=== PATIENT | male | born 1955 | race Caucasian/White ===

== ENCOUNTER → 2017-01-27 | Outpatient (CLI) | payer OTHER | END | disposition home or self-care (01) | LOC: PUL 10:22 | PROVIDERS: ATTEND Physician Assistant Medical | DX: J44.9 Chronic obstructive pulmonary disease, unspecified (principal) | CPT/HCPCS: 94060; 94726; 94729 ==

== ENCOUNTER 2017-02-20 11:11 | Day surgery (SDC) | payer OTHER ==
[2017-02-17 18:43] VITALS: Ht 193 cm; Wt 88.0 kg
[~2017-02-20] VITALS: Ht 193 cm; Wt 88.0 kg
[2017-02-20] MEDS ORDERED: CEFAZOLIN 2 GM/50 ML (PMX) 50 ML IVPB ONE (15:30)
[2017-02-20] MEDS ORDERED: SOD CHLORIDE 0.9% 1,000 ML IV ONE (15:30)
== END 2017-02-20 12:10 | disposition home or self-care (01) ==
LOC: SDS 11:11
PROVIDERS: ATTEND Surgery
DX: K40.90 Unilateral inguinal hernia, without obstruction or gangrene, not specified as recurrent (principal); Z53.9 Procedure and treatment not carried out, unspecified reason

== ENCOUNTER 2017-02-27 09:57 | Inpatient (IN) | payer OTHER ==
[~2017-02-27] VITALS: Ht 193 cm; Wt 81.3 kg
[2017-02-27] VITALS (28 sets, daily range): BP systolic 82–154; BP diastolic 50–97; PULSE 74–228; RESP 11–20; Ht 193 cm; Wt 81.3 kg
[~2017-02-27 09:57] MED LIST: ROCURONIUM 50 MG INJ ONE
[2017-02-27] MEDS ORDERED: ATOR80TA75 PO (13:38)
[2017-02-27] MEDS ORDERED: FER325 PO (13:38)
[2017-02-27] MEDS ORDERED: FURO20TA3 PO (13:38)
[2017-02-27] MEDS ORDERED: ASPI81TA3 PO (13:39)
[2017-02-27] MEDS ORDERED: BENA10TA48 PO (13:39)
[2017-02-27] MEDS ORDERED: CARV6.2579 PO (13:39)
[2017-02-27 13:57] LABS: BASOPHILS % 0.3 % (0.0-2.0); EOSINOPHILS # 0.1 10^3/ul (0.0-0.5); EOSINOPHILS % 1.5 % (0.0-7.0); HEMOGLOBIN 14.2 g/dl (14.0-18.0); LYMPHOCYTES # 2.2 10^3/ul (0.8-2.9); LYMPHOCYTES % 29.5 % (15.0-51.0); MEAN CORPUSCULAR HEMOGLOBIN 30.2 pg (29.0-33.0); MEAN CORPUSCULAR VOLUME 91.5 fl (82.0-101.0); MEAN PLATELET VOLUME 10.1 fl (7.4-10.4); MONOCYTE # 0.6 10^3/ul (0.3-0.9); MONOCYTES % 8.2 % (0.0-11.0); NEUTROPHILS % 60.2 % (39.0-77.0); PLATELET COUNT 240 10^3/UL (140-415); RED CELL DISTRIBUTION WIDTH 15.3 % (11.5-14.5); WHITE BLOOD COUNT 7.4 10^3/ul (4.8-10.8)
[2017-02-27 14:04] LABS: INR 1.04; PROTIME 13.6 Sec (12.2-14.2); PT RATIO 1.1
[2017-02-27 14:05] LABS: ALBUMIN 4.2 g/dl (3.3-4.9); ALBUMIN/GLOBULIN RATIO 1.13; BILIRUBIN,INDIRECT 0.7 mg/dl (0-1.1); BILIRUBIN,TOTAL 0.7 mg/dl (0.2-1.3); PARTIAL THROMBOPLASTIN TIME 32.2 Sec (25.0-35.0); TOTAL PROTEIN 7.9 g/dl (6.1-8.1)
[2017-02-27 14:07] LABS: CALCIUM 9.9 mg/dl (8.4-10.2); CREATININE 0.72 mg/dl (0.61-1.24); POTASSIUM 4.6 mmol/L (3.5-5.1)
[2017-02-27] MEDS ORDERED: FENTAnyl 50 MCG/ML VIAL ONE (16:36)
[2017-02-27] MEDS ORDERED: MIDAZOLAM 1 MG/ML 2 ML INJ ONE (16:36)
--- NOTE | 2017-02-27 16:36 | HPN ---
Date/Time of Note Date/Time of Note DATE: 02/27/17 TIME: 16:35 Interval H&P Admission Note Pt. seen H&P reviewed: No system changes SAMINA SHORE MD Feb 27, 2017 16:36
[2017-02-27] MEDS ORDERED: POLYMYXIN/BACITRACIN 1L IRRIG ONE (16:42)
[2017-02-27] MEDS ORDERED: BUPIVACAINE 0.25% (MPF) 30 ML INJ ONE (17:13)
[2017-02-27] MEDS ORDERED: MEPERIDINE 25 MG INJ IV PRN (17:30)
[2017-02-27] MEDS ORDERED: FENTAnyl 50 MCG/ML VIAL IV PRN (17:30)
[2017-02-27] MEDS ORDERED: ONDANSETRON 4 MG INJ IV PRN ×3 (17:30→19:00)
[2017-02-27] MEDS ORDERED: hydrALAzine 20 MG INJ IV PRN (17:30)
[2017-02-27] MEDS ORDERED: DIPHENHYDRAMINE 50 MG INJ IV PRN (17:30)
[2017-02-27] MEDS ORDERED: METOCLOPRAMIDE 10 MG INJ IV PRN (17:30)
[2017-02-27] MEDS ORDERED: LABETALOL HCL 20MG INJ IV PRN (17:30)
[2017-02-27] MEDS ORDERED: morphine 10 MG INJ ONE (17:30)
[2017-02-27] MEDS ORDERED: morphine (1 MG/ML) 10ML SYRINGE IV PRN (17:30)
[2017-02-27] MEDS ORDERED: PHENYLephrine (100 MCG/ML) 5ML SYG ONE (17:56)
[2017-02-27] MEDS ORDERED: ONDANSETRON 4 MG INJ ONE (18:14)
[2017-02-27] MEDS ORDERED: PROPOFOL 20 ML ONE (18:20)
[2017-02-27] MEDS ORDERED: LIDOCAINE 2% (SDV) 5 ML INJ ONE (18:20)
[2017-02-27] MEDS ORDERED: NEOSTIGMINE 3 MG/3 ML SYRINGE ONE (18:21)
[2017-02-27] MEDS ORDERED: GLYCOPYRROLATE 0.4 MG INJ ONE (18:21)
--- NOTE | 2017-02-27 18:25 | OPR ---
Date/Time of Note Date/Time of Note DATE: 02/27/17 TIME: 18:16 Operative Report Procedure Date: Feb 27, 2017 Preoperative Diagnosis Left inguinal hernia without obstruction or gangrene Postoperative Diagnosis Left inguinal hernia without obstruction or gangrene Operation Performed 1. Left inguinal hernia repair with mesh 2. Implantation of biological extracellular matrix 3. Left ilioinguinal nerve block Surgeon: SAMINA SHORE MD Anesthesia Type: general Anesthesiologist: SHAISTA SOLIS MD Estimated Blood Loss: minimal Transfusion Required: no Specimens Hernia sac Grafts/Implants 1. Ethicon ultra pro plug and patch size large 2. 1000 mg amnio fix powder Complications: no Pt Condition Post Procedure: stable Disposition: PACU Indications The patient is a 61-year-old male with a history of hepatitis C and COPD who presented to the office complaining of a painful left groin bulge. He was diagnosed on clinical exam as having a large left inguinal hernia. The patient was scheduled for left inguinal hernia repair with mesh to prevent sequelae of hernia disease which include, but are not limited to: Incarceration and strangulation. All risks and benefits of the procedure including but not limited to: Wound infection, excessive bleeding, postoperative seroma/hematoma formation, nerve injury which may be temporary versus permanent, injury to the reproductive organs including the vas deferens and the testicle which may lead to testicular atrophy, injury to intra-abdominal organs necessitating subsequent operation, hernia recurrence, chronic pain, etc. were all explained to the patient full detail. The patient fully understood and wished to proceed with the procedure. Informed consent was therefore obtained. Operative\Procedure Findings Large left indirect inguinal hernia containing fat. Attenuation of the floor of the inguinal canal and conjoined tendon. Procedure Description The patient was brought to the operating room and placed supine on the operating table. Bilateral sequential compression devices were placed on both lower extremities. A dose of broad-spectrum perioperative intravenous antibiotics was given. After the induction of smooth general anesthesia the patient's abdomen and bilateral groins were prepped and draped in standard surgical fashion. After performance of the surgical timeout 0.25% Marcaine with epinephrine was injected over the area of the incision. Incision was then made using a 15 blade scalpel from the left pubic tubercle towards the left anterior superior iliac spine. Incision was carried down through the skin into the subcutaneous tissues using Bovie electrocautery. Keisha's fascia was incised and the aponeurosis of the external oblique muscle was reached. The aponeurosis of the external oblique muscle was then incised in the direction of its fibers using a 15 blade scalpel and further opened using Metzenbaum scissors. The ilioinguinal nerve was identified on top of the spermatic cord. It was isolated and preserved throughout the entirety of the procedure. Using blunt dissection the spermatic cord was then mobilized off of the floor of the inguinal canal and encircled using a Gianluca drain. The floor of the inguinal canal appeared attenuated. Cremasteric muscles were incised and dissection of the cord was begun. A large indirect hernia sac was identified. It was dissected off of the cord. Dissection was continued towards the neck of the hernia. There is a lot of scarring of the sac to the vas deferens and the cord structures, therefore, the sac was tediously dissected preserving the structures. Once we reach the neck of the hernia sac the sac was opened. Contents were reduced back into the intra-abdominal cavity. The sac was then ligated and transected using 3-0 Vicryl suture ligature. The sac was passed off the field as specimen. The indirect hernia defect was then repaired using a large sized Ethicon ultra pro plug. The plug was sutured in place using interrupted 3-0 Vicryl sutures. An onlay mesh was then used to reconstruct the floor of the inguinal canal. It was secured in place using interrupted 2-0 Novafil sutures. The conjoined tendon was attenuated. Both the plug and the mesh were soaked in antibiotic irrigation prior to placement in the field. A slit was made in the mesh to accommodate the spermatic cord. With the repair complete it was examined and noted to be hemostatic and tension-free. The wound cavity was then irrigated with more antibiotic containing irrigation. Given the patient's comorbidities, attenuation of the inguinal canal and conjoined tendon, it was elected to use 1000 mg of amnio fix extracellular biological matrix to aid in wound regeneration. This was placed on top of the mesh and over the area of the conjoined tendon. Spermatic cord was then placed back into its anatomical position. The aponeurosis of the external oblique muscle was then reapproximated using a running 3-0 Vicryl suture. Incision was then closed in layers using a running 3-0 Vicryl suture for the Keisha's fascia. The skin was then reapproximated using 4-0 Monocryl suture in a running subcuticular fashion. Attention was then turned to the left ilioinguinal nerve block. 10 cc of 0.25% Marcaine with epinephrine was then injected in a radial fashion approximately 2 fingerbreadths medial and inferior to the left anterior superior iliac spine. Further local anesthesia was then injected around the incision site. Incision was cleaned and Dermabond was applied. The patient was awoken from anesthesia and transferred to the recovery room in stable condition. Both testicles were palpated and noted to be in their anatomical positions at the end of the case. All counts were correct at the end of the case 2. SAMINA SHORE MD Feb 27, 2017 18:25
[2017-02-27] MEDS ORDERED: ADENOSINE 2 ML ONE (18:27)
[2017-02-27] MEDS ORDERED: VERAPAMIL 5 MG INJ ONE (18:27)
[2017-02-27] MEDS ORDERED: LIDOCAINE 100 MG SYRINGE ONE (18:29)
[2017-02-27] MEDS ORDERED: KETOROLAC 30 MG INJ IV PRN (18:30)
[2017-02-27] MEDS ORDERED: HYDROCODONE/APAP (5/325) TAB PO PRN ×2 (18:30)
[2017-02-27] MEDS ORDERED: IBUPROFEN 600 MG TAB PO PRN (18:30)
[2017-02-27] MEDS ORDERED: HYDROCODONE/APAP (10/325) TAB PO PRN (19:00)
[2017-02-27 19:15] LABS: BASOPHILS % 0.4 % (0.0-2.0); EOSINOPHILS # 0.1 10^3/ul (0.0-0.5); EOSINOPHILS % 1.3 % (0.0-7.0); HEMATOCRIT 40.3 % (42.0-52.0); HEMOGLOBIN 12.9 g/dl (14.0-18.0); LYMPHOCYTES # 2.1 10^3/ul (0.8-2.9); LYMPHOCYTES % 26.2 % (15.0-51.0); MEAN CORPUSCULAR VOLUME 93.7 fl (82.0-101.0); MEAN PLATELET VOLUME 9.1 fl (7.4-10.4); MONOCYTE # 0.6 10^3/ul (0.3-0.9); MONOCYTES % 7.7 % (0.0-11.0); NEUTROPHILS % 64.3 % (39.0-77.0); PLATELET COUNT 204 10^3/UL (140-415); RED CELL DISTRIBUTION WIDTH 15.3 % (11.5-14.5); WHITE BLOOD COUNT 7.9 10^3/ul (4.8-10.8)
[2017-02-27 19:26] LABS: MAGNESIUM 1.7 mg/dl (1.7-2.5)
[2017-02-27 19:39] LABS: TROPONIN-I 0.034 ng/ml (0.00-0.12)
[2017-02-27 19:44] LABS: CK-MB 1.05 ng/ml (0.0-2.4)
[2017-02-27 19:47] LABS: CALCIUM 9.2 mg/dl (8.4-10.2); CREATININE 0.91 mg/dl (0.61-1.24); POTASSIUM 4.9 mmol/L (3.5-5.1)
[2017-02-27 20:41] LABS: THYROID STIMULATING HORMONE 7.39 MIU/L (0.465-4.680)
[2017-02-27] MEDS: FAMOTIDINE 20 MG TAB PO SCH (21:00)
[2017-02-27] MEDS: morphine 4 MG/ML VIAL IV PRN (21:57)
[2017-02-27] MEDS: SOD CHLORIDE 0.9% 1,000 ML IV SCH ×2 (21:57→22:01)
--- NOTE | 2017-02-27 23:54 | HP ---
DATE OF ADMISSION: 02/27/2017 HISTORY OF PRESENT ILLNESS: The patient is a 61-year-old, male, with past medical history positive for hypertension, congestive heart failure, and COPD. The patient with congestive heart failure with preserved ejection fraction of 50 percent, history of hepatitis C. Patient developed a left inguinal hernia and was evaluated by Dr. Beltran in General Surgery consultation. Patient was brought to the hospital and underwent left inguinal hernia repair with mesh. The patient developed SVT while in recovery, was given adenosine and verapamil, which did not help. The patient had been shocked, after that the patient has converted to sinus rhythm. Currently in recovery the patient is awake, alert, and oriented. Denies any chest pain. Denies shortness of breath. Remains in sinus rhythm with first degree block. The patient denies any nausea and vomiting, however, complains of left inguinal pain. Patient will be admitted for further evaluation and management to telemetry floor. PAST MEDICAL HISTORY: Is positive for hypertension, CHF, COPD, and hepatitis C. PAST SURGICAL HISTORY: Status post appendectomy in 1965, status post right eye cataract surgery many years ago. FAMILY HISTORY: Noncontributory. SOCIAL HISTORY: Patient is a everyday smoker. Smokes about 1 pack of cigarettes per week. Smoked for 53 years. The patient denies any alcohol use. Denies any illicit drug use. ALLERGIES: NO KNOWN ALLERGIES. HOME MEDICATIONS: 1. Aspirin. 2. Atorvastatin. 3. Benazepril. 4. Coreg. 5. Ferrous sulfate. 6. Lasix. REVIEW OF SYSTEMS: Twelve point review of system is negative unless mentioned in HPI. PHYSICAL EXAMINATION: GENERAL: Well developed, well nourished gentleman currently is awake and alert. VITAL SIGNS: Temperature is 97.3, pulse is 94, blood pressure 92/60, respiratory rate 13, and oxygen saturation 100 percent on room air. HEENT: Head is atraumatic, normocephalic. Pupils, left is equal, round, reactive to light and accommodation. Right eye status post cataract surgery. Oral mucosa is pink and moist. NECK: Supple. No cervical lymphadenopathy. No thyromegaly. CHEST: Lungs clear bilaterally. There is no rhonchi, wheezes, rales noted. CARDIOVASCULAR: Patient has a systolic murmur. Normal S1, S2. Negative for any clicks and rubs. ABDOMEN: Flat, soft, status post left inguinal hernia repair. EXTREMITIES: No edema, clubbing, or cyanosis. SKIN: No rash. No petechiae noted. NEUROLOGICAL: Patient is awake, alert, and oriented times 4. No focal deficits noted. Motor strength 5/5 in all extremities. LABORATORY DATA: On admission, CBC, white blood cells 7.4, hemoglobin 14.2, hematocrit 43.0, ad platelets 240. Chemistry, sodium is 143, potassium is 4.6, chloride 100, carbon dioxide 28, anion gap 20, BUN is 20, creatinine is 0.72, glucose 85, AST 73, ALT is 109, alkaline phosphatase 61. PT is 13.6, INR is 1.04, and PTT is 32.2. ASSESSMENT: 1. Supraventricular tachycardia. Continue close telemetry monitoring. Dr. Orellana will be following the patient in Cardiology consultation. 2. Rule out acute coronary syndrome. I will obtain 12 lead EKG and cardiac enzymes q. 8 hours times 3. 3. Left inguinal hernia, status post hernia repair with mesh. 4. Congestive heart failure with preserved ejection fraction of 50 percent. 5. Hypertension. 6. Chronic obstructive pulmonary disease (COPD). 7. Tobacco dependence. 8. Hepatitis C. PLAN: 1. We will continue Vincent and Dilaudid for pain. 2. Zofran p.r.n. for nausea. 3. Sequential compression device for deep venous thrombosis prophylaxis and Pepcid for peptic ulcer disease prophylaxis. 4. Further recommendations based on clinical course. Plan of care discussed with Dr. Kendall. Dictated By: Jasmyn Jean NP /[email or web address]/ankur /Document#: [id number] JESUS
[2017-02-28] VITALS (11 sets, daily range): BP systolic 101–134; BP diastolic 57–65; PULSE 89–100; RESP 15–18
[2017-02-28] MEDS ORDERED: MAGNESIUM SULFATE 2 GM/50 ML 50 ML IVPB ONE (10:00)
[2017-02-28] MEDS: FAMOTIDINE 20 MG TAB PO SCH ×2 (10:29→20:21)
[2017-02-28] MEDS: HYDROmorphONE 1 MG/ML SYG IV PRN ×3 (10:30→20:21)
--- NOTE | 2017-02-28 10:40 | CONS ---
DATE OF ADMISSION: 02/27/2017 DATE OF CONSULTATION: 02/28/2017 Thank you, , for allowing me to participate in care of your patient. REASON FOR CONSULTATION: Episodes of SVT postop. HISTORY OF PRESENT ILLNESS: Patient is a 61-year-old gentleman, who was admitted for a left inguinal hernia repair. Post repair, he developed episodes of SVT. He was treated with adenosine and verapamil and did not respond, and he was shocked with 200 joules, subsequently converted to sinus rhythm. Currently, the patient is in normal sinus rhythm. He denies any chest pain, shortness of breath, dizziness or palpitation during episodes of SVT. PAST MEDICAL HISTORY: Significant for: 1. Hypertension. 2. COPD. 3. Systolic heart failure. 4. Hepatitis. 5. Dyslipidemia. PAST SURGICAL HISTORY: Significant for appendectomy, cataract surgery and now left inguinal hernia repair. FAMILY HISTORY: Noncontributory. SOCIAL HISTORY: He is a current smoker, smokes about a pack a day. Denies any alcohol or recreational drugs. ALLERGIES: NONE. CURRENT MEDICATION: Famotidine. HOME MEDICATION: Include: 1. Aspirin. 2. Lipitor. 3. Benazepril. 4. Coreg. 5. Ferrous sulfate. REVIEW OF SYSTEMS: Negative, except as mentioned in the HPI. PHYSICAL EXAMINATION: VITAL SIGNS: Temperature is 97.8, heart rate of 94, blood pressure 134/57 mmHg, breathing at 18, saturating 95 percent. GENERAL: Patient awake, alert, oriented, in no apparent distress. NECK: No JVD or carotid bruit. HEART: Regular rate and rhythm. No murmur, rub or gallop. CHEST: Clear to auscultation. ABDOMEN: Soft. Bowel sounds are present. There is no EXTREMITIES: No pedal edema. Pedal pulses felt bilaterally. LABORATORY: Review of the tele strip shows episodes of SVT, and a 12-lead electrocardiogram shows normal sinus rhythm with a first-degree AV block with a ventricular rate of 84 beats per minute with prolonged NV interval of 214 msec with normal QRS and prolonged QT interval. WBC 7.9, hemoglobin 12.9, hematocrit 40.3 with platelet of 204,000. Sodium 141, potassium 4.9, chloride 101, CO2 of 28, BUN 20, creatinine 0.91. BNP 2460. Troponin x2 was negative. TSH is 7.3. PLAN: A 61-year-old male with: 1. Supraventricular tachycardia. 2. Hypertension. 3. Congestive heart failure. 4. Chronic obstructive pulmonary disease. 5. Dyslipidemia. Patient had multiple episodes of supraventricular tachycardia, who responded to 200 joules of cardioversion. Subsequently, patient has been in sinus rhythm. He has been ruled out for acute coronary syndrome with serial negative troponins. His magnesium is 1.7. RECOMMENDATION: 1. Replete magnesium with 2 grams IV STAT once. 2. Keep potassium more than 4. 3. Started on Coreg 3.125 mg b.i.d. 4. Echocardiogram to assess for structural heart disease post shock. 5. Monitor on telemetry. Dictated By: All Fu MD /katarzyna/eliza /Document#: [id number]
[2017-02-28 11:00] LABS: BASOPHILS % 0.3 % (0.0-2.0); EOSINOPHILS # 0.1 10^3/ul (0.0-0.5); EOSINOPHILS % 0.8 % (0.0-7.0); HEMATOCRIT 37.4 % (42.0-52.0); LYMPHOCYTES # 1.8 10^3/ul (0.8-2.9); LYMPHOCYTES % 20.2 % (15.0-51.0); MEAN CORPUSCULAR HEMOGLOBIN 29.9 pg (29.0-33.0); MEAN CORPUSCULAR HGB CONC 32.1 g/dl (32.0-37.0); MEAN CORPUSCULAR VOLUME 93.3 fl (82.0-101.0); MEAN PLATELET VOLUME 10.4 fl (7.4-10.4); MONOCYTE # 0.9 10^3/ul (0.3-0.9); MONOCYTES % 9.6 % (0.0-11.0); PLATELET COUNT 183 10^3/UL (140-415); RED BLOOD COUNT 4.01 10^6/ul (4.70-6.10); RED CELL DISTRIBUTION WIDTH 15.5 % (11.5-14.5)
--- NOTE | 2017-02-28 12:16 | PN ---
Date/Time of Note Date/Time of Note DATE: 02/28/17 TIME: 12:04 Assessment/Plan VTE Prophylaxis VTE Prophylaxis Intervention: SCD's Lines/Catheters IV [facility] ([facility]): Peripheral IV Assessment/Plan Chief Complaint/Hosp Course Patient is currently in sinus rhythm with first-degree block, no new episodes of SVT overnight. Problems: Assessment/Plan - Supraventricular tachycardia. Continue telemetry monitoring. Dr. Orellana is following the patient in cardiology consultation. Pending 2D echo. - Rule out acute coronary syndrome. Troponin is negative 3. - Left inguinal hernia, status post hernia repair with mesh by Dr. Beltran. - Congestive heart failure. - Hypertension. Continue Coreg. - Chronic obstructive pulmonary disease (COPD). - Tobacco dependence. Smoking cessation is strongly advised. - Hx Hepatitis C. Further recommendations based on clinical course. Plan of care discussed with Dr. Kendall. Exam/Review of Systems Vital Signs Vitals Vital Signs Date Time Temp Pulse Resp B/P Pulse Ox O2 Delivery O2 Flow Rate FiO2 02/28/17 11:52 97.8 95 18 107/63 91 02/27/17 20:50 Nasal Cannula 2.0 Intake and Output 02/27/17 02/27/17 02/28/17 15:00 23:00 07:00 Intake Total 850 ml 1000 ml Output Total 20 ml Balance 830 ml 1000 ml Exam Constitutional: alert, oriented Head: normocephalic Neck: supple Respiratory: clear to auscultation Cardiovascular: murmurs/extra sounds, nl pulses, regular rate and rhythm Gastrointestinal: non-tender Extremities: normal pulses Neurological: nl mental status Results Result Diagram: 02/28/17 0900 02/27/17 1905 Results 24 hrs Laboratory Tests Test 02/27/17 13:00 02/27/17 19:05 02/27/17 19:06 02/28/17 00:40 White Blood Count 7.4 7.9 Red Blood Count 4.70 4.30 L Hemoglobin 14.2 12.9 L Hematocrit 43.0 40.3 L Mean Corpuscular Volume 91.5 93.7 Mean Corpuscular Hemoglobin 30.2 30.0 Mean Corpuscular Hemoglobin Concent 33.0 32.0 Red Cell Distribution Width 15.3 H 15.3 H Platelet Count 240 204 Mean Platelet Volume 10.1 9.1 Neutrophils % 60.2 64.3 Lymphocytes % 29.5 26.2 Monocytes % 8.2 7.7 Eosinophils % 1.5 1.3 Basophils % 0.3 0.4 Nucleated Red Blood Cells % 0.0 0.0 Neutrophils # (Manual) 4 5 Lymphocytes # 2.2 2.1 Monocytes # 0.6 0.6 Eosinophils # 0.1 0.1 Basophils # 0.0 0.0 Nucleated Red Blood Cells # 0.0 0.0 Prothrombin Time 13.6 Prothrombin Time Ratio 1.1 INR International Normalized Ratio 1.04 Activated Partial Thromboplast Time 32.2 Sodium Level 143 141 Potassium Level 4.6 4.9 Chloride Level 100 101 Carbon Dioxide Level 28 28 Anion Gap 20 H 17 H Blood Urea Nitrogen 20 20 Creatinine 0.72 0.91 Glucose Level 85 106 Calcium Level 9.9 9.2 Total Bilirubin 0.7 Direct Bilirubin 0.00 Indirect Bilirubin 0.7 Aspartate Amino Transf (AST/SGOT) 73 H Alanine Aminotransferase (ALT/SGPT) 109 H Alkaline Phosphatase 61 Total Protein 7.9 Albumin 4.2 Globulin 3.70 H Albumin/Globulin Ratio 1.13 B-Type Natriuretic Peptide 2460 H Thyroid Stimulating Hormone (TSH) 7.390 H Magnesium Level 1.7 Creatinine Kinase MB (Mass) 1.05 Troponin I 0.034 0.068 Test 02/28/17 09:00 White Blood Count 9.0 Red Blood Count 4.01 L Hemoglobin 12.0 L Hematocrit 37.4 L Mean Corpuscular Volume 93.3 Mean Corpuscular Hemoglobin 29.9 Mean Corpuscular Hemoglobin Concent 32.1 Red Cell Distribution Width 15.5 H Platelet Count 183 Mean Platelet Volume 10.4 Neutrophils % 69.0 Lymphocytes % 20.2 Monocytes % 9.6 Eosinophils % 0.8 Basophils % 0.3 Nucleated Red Blood Cells % 0.0 Neutrophils # (Manual) 6 Lymphocytes # 1.8 Monocytes # 0.9 Eosinophils # 0.1 Basophils # 0.0 Nucleated Red Blood Cells # 0.0 Troponin I 0.068 Free Thyroxine 1.22 Medications Medications Current Medications Ibuprofen (Motrin) 600 mg Q6H PRN PO PAIN; Start 02/27/17 at 18:30 Ketorolac Tromethamine (Toradol) 30 mg ONCE PRN IV PAIN Last administered on t 19:06; Admin Dose 30 MG; Start 02/27/17 at 18:30; Stop 03/02/17 at 18:29 Acetaminophen/ Hydrocodone Bitart (Dalton (5/325)) 1 tab Q4H PRN PO PAIN LEVEL 1 -3; Start 02/27/17 at 18:30 Acetaminophen/ Hydrocodone Bitart (Dalton (5/325)) 2 tab Q4H PRN PO PAIN LEVEL 4 -6; Start 02/27/17 at 18:30 Morphine Sulfate (morphine) 4 mg Q4H PRN IV SEVERE PAIN LEVEL 7-10 Last administered on 02/27/17 21:57; Admin Dose 4 MG; Start 02/27/17 at 18:30 Ondansetron HCl (Zofran Inj) 4 mg Q6H PRN IV NAUSEA; Start 02/27/17 at 18:30 Hydromorphone HCl (Dilaudid) 0.5 mg Q6H PRN IV PAIN LEVEL 6-10 Last administered on 02/28/17 10:30; Admin Dose 0.5 MG; Start 02/27/17 at 19:00 Acetaminophen/ Hydrocodone Bitart (Dalton (10/325)) 1 tab Q6H PRN PO PAIN; Start 02/27/17 at 19:00 Ondansetron HCl (Zofran Inj) 4 mg Q6H PRN IV NAUSEA AND/OR VOMITING; Start at 19:00 Famotidine 20 mg 20 mg BID PO Last administered on 02/28/17 10:29; Admin Dose 20 MG; Start 02/27/17 at 21:00 Sodium Chloride (NS) 1,000 ml @ 75 mls/hr [id number] IV ; Start 02/27/17 at 18:33 Carvedilol (Coreg) 3.125 mg BID PO Last administered on 02/28/17 10:30; Admin Dose 3.125 MG; Start 02/28/17 at 10:00 LUBA GUERRERO Feb 28, 2017 12:14
[2017-02-28 14:10] LABS: CALCIUM 9.3 mg/dl (8.4-10.2); CREATININE 1.01 mg/dl (0.61-1.24)
[2017-02-28] MEDS: SOD CHLORIDE 0.9% 1,000 ML IV SCH (14:25)
--- NOTE | 2017-02-28 15:12 | RADRPT ---
PROCEDURE: XR Chest. CLINICAL INDICATION: Shortness of breath. TECHNIQUE: Single frontal view. COMPARISON: None. FINDINGS: There is mild interstitial disease bilaterally consistent with pulmonary edema. The heart is mildly enlarged. There is no pleural effusion. There is no pneumothorax. IMPRESSION: 1. Mild pulmonary edema and cardiomegaly. 2. Otherwise normal chest x-ray. RPTAT: QQ .Les Mosqueda MD, MD Date Time Electronically viewed and signed by .Les Mosqueda MD, MD on 02/28/2017 15:11 .R/
[2017-02-28] MEDS: morphine 4 MG/ML VIAL IV PRN ×2 (18:01→23:27)
--- NOTE | 2017-02-28 20:24 | PN ---
Date/Time of Note Date/Time of Note DATE: 02/28/17 TIME: 20:19 Assessment/Plan Lines/Catheters IV [facility] (from [facility]): Peripheral IV Assessment/Plan Assessment/Plan 61-year-old male status post left inguinal hernia repair with mesh and postop SVT postop day #1 * Remains in sinus rhythm * Cardiology consult appreciated * Echocardiogram pending * Discharge home once medically cleared by cardiology Subjective 24 Hr Interval Summary Feels okay. Denies chest pain. Denies shortness of breath. Some surgical pain of the left groin which is controlled with medication. Afebrile. Exam/Review of Systems Vital Signs Vitals Vital Signs Date Time Temp Pulse Resp B/P Pulse Ox O2 Delivery O2 Flow Rate FiO2 02/28/17 16:15 89 02/28/17 15:38 98.2 18 112/65 92 02/27/17 20:50 Nasal Cannula 2.0 Intake and Output 02/27/17 02/27/17 02/28/17 15:00 23:00 07:00 Intake Total 850 ml 1000 ml Output Total 20 ml Balance 830 ml 1000 ml Exam Free Text/Dictation GENERAL: Awake, alert, oriented x 3. No acute distress. CARDIOVASCULAR: S1S2, regular rate and rhythm. No murmurs appreciated. RESPIRATORY: Clear to auscultation bilaterally. ABDOMEN: Soft, bowel sounds present, nondistended, nontender to palpation. GROINS: Expected postop swelling of left groin. Mild tenderness to palpation. No hernia recurrence. INCISION: Clean, dry, intact EXTREMITIES: Free range of motion x 4. No cyanosis, edema, or clubbing. Results Result Diagram: 02/28/17 0900 02/28/17 1231 SAMINA SHORE MD Feb 28, 2017 20:24
[2017-03-01] VITALS (12 sets, daily range): BP systolic 101–139; BP diastolic 59–89; PULSE 76–108; RESP 15–20
[2017-03-01] MEDS: FAMOTIDINE 20 MG TAB PO SCH ×2 (08:57→20:46)
[2017-03-01 09:07] LABS: BASOPHILS % 0.4 % (0.0-2.0); EOSINOPHILS # 0.1 10^3/ul (0.0-0.5); EOSINOPHILS % 1.4 % (0.0-7.0); HEMATOCRIT 36.3 % (42.0-52.0); HEMOGLOBIN 11.6 g/dl (14.0-18.0); LYMPHOCYTES # 1.7 10^3/ul (0.8-2.9); LYMPHOCYTES % 21.5 % (15.0-51.0); MEAN CORPUSCULAR HEMOGLOBIN 29.4 pg (29.0-33.0); MEAN CORPUSCULAR VOLUME 92.1 fl (82.0-101.0); MONOCYTE # 0.9 10^3/ul (0.3-0.9); MONOCYTES % 11.3 % (0.0-11.0); NEUTROPHILS % 65.1 % (39.0-77.0); PLATELET COUNT 157 10^3/UL (140-415); RED BLOOD COUNT 3.94 10^6/ul (4.70-6.10); RED CELL DISTRIBUTION WIDTH 15.5 % (11.5-14.5); WHITE BLOOD COUNT 7.7 10^3/ul (4.8-10.8)
[2017-03-01 09:14] LABS: CALCIUM 9.3 mg/dl (8.4-10.2); CREATININE 0.81 mg/dl (0.61-1.24); POTASSIUM 4.7 mmol/L (3.5-5.1)
--- NOTE | 2017-03-01 09:21 | RADRPT ---
Echocardiogram Report Patient Name: CRISTIANA DUNLAP Gender: Male Date: 1955 Study Date: 28-Feb-2017 Gas Singer: Huseyin Tomas RUST Location: [id number] Ref. Physician: ALL FU Quality: Good Procedures: Transthoracic echocardiogram with complete 2D, M-Mode, and doppler examination. Indications: svt POST OP. 2D/M Mode Doppler Measurement Value Normal Ranges Measurement Value Normal Ranges LVIDd 2D 6.4 3.5 - 5.6 cm AV Peak Christiano 1.3 m/sec LVIDs 2D 5.1 2.1 - 4.1 cm AV Peak PG 7.0 mmHg LVPWd 2D 1.4 0.6 - 1.1 cm MV Peak Christiano 1.8 m/sec IVSd 2D 1.3 0.6 - 1.1 cm MV Peak PG 12.4 mmHg AoR Diam 2D 3.8 2.0 - 3.7 cm MV Mean Christiano 1.0 m/sec EDV 2D 205.9 cm3 MV Mean PG 4.7 mmHg ESV 2D 131.4 cm3 MV VTI 34.7 cm LA Dimen 2D 4.2 2.3 - 4.0 cm TR Peak Christiano 3.1 m/sec TR Peak PG 37.4 mmHg RVSP 52.0 mmHg Findings Left Ventricle: Normal left ventricular cavity size. Moderate concentric left ventricular hypertrophy. Severe global left ventricular systolic dysfunction. Ejection fraction is visually estimated at 20 %. Tissue Doppler/Mitral Doppler indices are consistent with restrictive physiology with markedly elevated left atrial pressure (Stage IIIIV diastolic dysfunction). Right Ventricle: Normal right ventricular size. Normal right ventricular systolic function. Left Atrium: There is mild enlargement of left atrium. Right Atrium: The right atrium is normal in size. Mitral Valve: Mitral valve leaflets appear moderately thickened. Moderate mitral annular calcification. Severe mitral valve regurgitation. Aortic Valve: No significant aortic stenosis or insufficiency. Aortic cusps appear mildly calcified. Tricuspid Valve: Normal appearance of the tricuspid valve. Estimated peak PA systolic pressure 52 mmHg. There is mild tricuspid regurgitation. Pulmonic Valve: Normal pulmonic valve appearance. Pericardium: Normal pericardium with no significant pericardial effusion. Aorta: Normal aortic root. IVC: Dilated IVC without respiratory collapse consistent with elevated right atrial pressure. Conclusions Normal left ventricular cavity size. Moderate concentric left ventricular hypertrophy. Severe global left ventricular systolic dysfunction. Ejection fraction is visually estimated at 20 %. Tissue Doppler/Mitral Doppler indices are consistent with restrictive physiology with markedly elevated left atrial pressure (Stage III-IV diastolic dysfunction). Normal right ventricular size. Normal right ventricular systolic function. Mitral valve leaflets appear moderately thickened. Moderate mitral annular calcification. Severe mitral valve regurgitation. No significant aortic stenosis or insufficiency. Aortic cusps appear mildly calcified. Normal appearance of the tricuspid valve. Estimated peak PA systolic pressure 52 mmHg. There is mild tricuspid regurgitation. Normal pericardium with no significant pericardial effusion. Electronically Signed By: All Fu 01-Mar-2017 09:20:34 -0700 Patient Name: CRISTIANA DUNLAP Study Date: 28-Feb-2017 [id number]
[2017-03-01] MEDS: SPIRONOLACTONE 25 MG TAB PO SCH (09:30)
[2017-03-01] MEDS: LOSARTAN 25 MG TAB PO SCH (09:30)
[2017-03-01] MEDS ORDERED: LOSARTAN 25 MG TAB PO SCH (09:30)
[2017-03-01] MEDS ORDERED: SPIRONOLACTONE 25 MG TAB PO SCH (09:30)
--- NOTE | 2017-03-01 14:32 | PN ---
Date/Time of Note Date/Time of Note DATE: 03/01/17 TIME: 14:27 Assessment/Plan VTE Prophylaxis VTE Prophylaxis Intervention: SCD's Lines/Catheters IV Catheter Type (from [facility]): Saline Lock Assessment/Plan Chief Complaint/Hosp Course No episodes of SVT, patient denies any chest pain. Plan of care was discussed with Dr. Kelly who is following patient in cardiology consultation, patient with severe left ventricular dysfunction, undergoing medication optimization by cardiology, continue to monitor on telemetry floor. Assessment/Plan - Supraventricular tachycardia. Continue telemetry monitoring. Dr. Orellana is following the patient in cardiology consultation. - Acute on chronic systolic and diastolic congestive heart failure with ejection fraction of 20% - Rule out acute coronary syndrome. Troponin is negative 3. - Left inguinal hernia, status post hernia repair with mesh by Dr. Beltran. - Hypertension. Continue Coreg. - Chronic obstructive pulmonary disease (COPD). - Tobacco dependence. Smoking cessation is strongly advised. - Hx Hepatitis C. Further recommendations based on clinical course. Plan of care discussed with Dr. Kendall. Problems: Exam/Review of Systems Vital Signs Vitals Vital Signs Date Time Temp Pulse Resp B/P Pulse Ox O2 Delivery O2 Flow Rate FiO2 03/01/17 12:00 78 03/01/17 11:56 98.2 18 106/61 93 02/27/17 20:50 Nasal Cannula 2.0 Intake and Output 02/28/17 02/28/17 03/01/17 15:00 23:00 07:00 Intake Total 720 ml 360 ml Balance 720 ml 360 ml Exam Constitutional: alert, oriented Head: normocephalic Neck: supple Respiratory: clear to auscultation Cardiovascular: murmurs/extra sounds, nl pulses, regular rate and rhythm Gastrointestinal: non-tender Extremities: normal pulses Neurological: nl mental status Results Result Diagram: 03/01/17 0800 03/01/17 0800 Results 24 hrs Laboratory Tests Test 02/28/17 17:50 03/01/17 00:30 03/01/17 08:00 Troponin I 0.075 0.094 White Blood Count 7.7 Red Blood Count 3.94 L Hemoglobin 11.6 L Hematocrit 36.3 L Mean Corpuscular Volume 92.1 Mean Corpuscular Hemoglobin 29.4 Mean Corpuscular Hemoglobin Concent 32.0 Red Cell Distribution Width 15.5 H Platelet Count 157 Mean Platelet Volume 10.0 Neutrophils % 65.1 Lymphocytes % 21.5 Monocytes % 11.3 H Eosinophils % 1.4 Basophils % 0.4 Nucleated Red Blood Cells % 0.0 Neutrophils # (Manual) 5 Lymphocytes # 1.7 Monocytes # 0.9 Eosinophils # 0.1 Basophils # 0.0 Nucleated Red Blood Cells # 0.0 Sodium Level 139 Potassium Level 4.7 Chloride Level 98 Carbon Dioxide Level 29 Anion Gap 17 H Blood Urea Nitrogen 20 Creatinine 0.81 Glucose Level 86 Calcium Level 9.3 Medications Medications Current Medications Ibuprofen (Motrin) 600 mg Q6H PRN PO PAIN; Start 02/27/17 at 18:30 Ketorolac Tromethamine (Toradol) 30 mg ONCE PRN IV PAIN Last administered on 19:06; Admin Dose 30 MG; Start 02/27/17 at 18:30; Stop 03/02/17 at 18:29 Acetaminophen/ Hydrocodone Bitart ([place] (5/325)) 1 tab Q4H PRN PO PAIN LEVEL 1 -3; Start 02/27/17 at 18:30 Acetaminophen/ Hydrocodone Bitart ([place] (5/325)) 2 tab Q4H PRN PO PAIN LEVEL 4 -6 Last administered on 03/01/17 04:15; Admin Dose 2 TAB; Start 02/27/17 at 18: 30 Morphine Sulfate (morphine) 4 mg Q4H PRN IV SEVERE PAIN LEVEL 7-10 Last administered on 02/28/17 23:27; Admin Dose 4 MG; Start 02/27/17 at 18:30 Ondansetron HCl (Zofran Inj) 4 mg Q6H PRN IV NAUSEA; Start 02/27/17 at 18:30 Hydromorphone HCl (Dilaudid) 0.5 mg Q6H PRN IV PAIN LEVEL 6-10 Last administered on 02/28/17 20:21; Admin Dose 0.5 MG; Start 02/27/17 at 19:00 Acetaminophen/ Hydrocodone Bitart ([place] (10/325)) 1 tab Q6H PRN PO PAIN; Start 02/27/17 at 19:00 Ondansetron HCl (Zofran Inj) 4 mg Q6H PRN IV NAUSEA AND/OR VOMITING; Start at 19:00 Famotidine (Pepcid) 20 mg BID PO Last administered on 03/01/17 08:57; Admin Dose 20 MG; Start 02/27/17 at 21:00 Carvedilol (Coreg) 3.125 mg BID PO Last administered on 03/01/17 09:00; Admin Dose 3.125 MG; Start 02/28/17 at 10:00 Losartan Potassium (Cozaar) 25 mg DAILY PO ; Start 03/01/17 at 09:30 Spironolactone (Aldactone) 25 mg DAILY PO ; Start 03/01/17 at 09:30 LUBA GUERRERO Mar 01, 2017 14:32
--- NOTE | 2017-03-01 17:39 | CONS ---
Date/Time of Note Date/Time of Note DATE: 03/01/17 TIME: 17:34 Assessment/Plan Assessment/Plan Additional Assessment/Plan 1. Supraventricular tachycardia. 2. Hypertension. 3. Congestive heart failure. 4. Chronic obstructive pulmonary disease. 5. Moderate Pulmonary Hypertension 6. Severely reduced systolic dysfunction with EF 20% 7. Dyslipidemia. Echo shows EF 20% with Moderate Pulmonary Hypertension Started on losartan Started on Aldactone Continue Coreg Started on low dose lasix Plan on discharge if hemodynamically stable Consultation Date/Type/Reason Admit Date/Time Feb 28, 2017 at 15:28 Initial Consult Date Exam/Review of Systems Vital Signs Vitals Vital Signs Date Time Temp Pulse Resp B/P Pulse Ox O2 Delivery O2 Flow Rate FiO2 03/01/17 16:41 108 03/01/17 16:00 98.4 18 139/89 99 02/27/17 20:50 Nasal Cannula 2.0 Intake and Output 02/28/17 02/28/17 03/01/17 15:00 23:00 07:00 Intake Total 720 ml 360 ml Balance 720 ml 360 ml Exam Constitutional: alert, oriented Head: atraumatic, normocephalic Neck: non-tender, supple Respiratory: clear to auscultation Cardiovascular: regular rate and rhythm Gastrointestinal: nl liver, spleen, non-tender, soft Extremities: normal pulses Results Result Diagram: 03/01/17 0800 03/01/17 0800 Results 24 hrs Laboratory Tests Test 02/28/17 17:50 03/01/17 00:30 03/01/17 08:00 Troponin I 0.075 0.094 White Blood Count 7.7 Red Blood Count 3.94 L Hemoglobin 11.6 L Hematocrit 36.3 L Mean Corpuscular Volume 92.1 Mean Corpuscular Hemoglobin 29.4 Mean Corpuscular Hemoglobin Concent 32.0 Red Cell Distribution Width 15.5 H Platelet Count 157 Mean Platelet Volume 10.0 Neutrophils % 65.1 Lymphocytes % 21.5 Monocytes % 11.3 H Eosinophils % 1.4 Basophils % 0.4 Nucleated Red Blood Cells % 0.0 Neutrophils # (Manual) 5 Lymphocytes # 1.7 Monocytes # 0.9 Eosinophils # 0.1 Basophils # 0.0 Nucleated Red Blood Cells # 0.0 Sodium Level 139 Potassium Level 4.7 Chloride Level 98 Carbon Dioxide Level 29 Anion Gap 17 H Blood Urea Nitrogen 20 Creatinine 0.81 Glucose Level 86 Calcium Level 9.3 Medications Medications Current Medications Ibuprofen (Motrin) 600 mg Q6H PRN PO PAIN; Start 02/27/17 at 18:30 Ketorolac Tromethamine (Toradol) 30 mg ONCE PRN IV PAIN Last administered on 19:06; Admin Dose 30 MG; Start 02/27/17 at 18:30; Stop 03/02/17 at 18:29 Acetaminophen/ Hydrocodone Bitart ([place] (5/325)) 1 tab Q4H PRN PO PAIN LEVEL 1 -3; Start 02/27/17 at 18:30 Acetaminophen/ Hydrocodone Bitart ([place] (5/325)) 2 tab Q4H PRN PO PAIN LEVEL 4 -6 Last administered on 03/01/17 04:15; Admin Dose 2 TAB; Start 02/27/17 at 18: 30 Ondansetron HCl (Zofran Inj) 4 mg Q6H PRN IV NAUSEA; Start 02/27/17 at 18:30 Hydromorphone HCl (Dilaudid) 0.5 mg Q6H PRN IV PAIN LEVEL 6-10 Last administered on 02/28/17 20:21; Admin Dose 0.5 MG; Start 02/27/17 at 19:00 Acetaminophen/ Hydrocodone Bitart ([place] (10/325)) 1 tab Q6H PRN PO PAIN; Start 02/27/17 at 19:00 Ondansetron HCl (Zofran Inj) 4 mg Q6H PRN IV NAUSEA AND/OR VOMITING; Start at 19:00 Famotidine (Pepcid) 20 mg BID PO Last administered on 03/01/17 08:57; Admin Dose 20 MG; Start 02/27/17 at 21:00 Carvedilol (Coreg) 3.125 mg BID PO Last administered on 03/01/17 09:00; Admin Dose 3.125 MG; Start 02/28/17 at 10:00 Losartan Potassium (Cozaar) 25 mg DAILY PO Last administered on 03/01/17 09:30 ; Admin Dose 25 MG; Start 03/01/17 at 09:30 Spironolactone (Aldactone) 25 mg DAILY PO Last administered on 03/01/17 09:30 ; Admin Dose 25 MG; Start 03/01/17 at 09:30 Morphine Sulfate (morphine) 2 mg Q4H PRN IV SEVERE PAIN LEVEL 7-10; Start 03/01 at 18:30 CARLOS SOTO M.D. Mar 01, 2017 17:39
[2017-03-01] MEDS: FUROSEMIDE 20 MG TAB PO SCH (18:14)
[2017-03-01] MEDS: morphine 2 MG INJ IV PRN (18:36)
--- NOTE | 2017-03-01 19:27 | PN ---
Date/Time of Note Date/Time of Note DATE: 03/01/17 TIME: 19:26 Assessment/Plan Lines/Catheters IV Catheter Type (from [facility]): Saline Lock Assessment/Plan Assessment/Plan 61-year-old male status post left inguinal hernia repair with mesh and postop SVT postop day #2 * Remains in sinus rhythm * Cardiology consult appreciated * Echocardiogram noted. EF 20%. * Discharge home once medically cleared by cardiology * Follow-up in office in 2 weeks Subjective 24 Hr Interval Summary Feeling better. Denies any chest pain or shortness of breath. Afebrile. Exam/Review of Systems Vital Signs Vitals Vital Signs Date Time Temp Pulse Resp B/P Pulse Ox O2 Delivery O2 Flow Rate FiO2 03/01/17 16:41 108 03/01/17 16:00 98.4 18 139/89 99 02/27/17 20:50 Nasal Cannula 2.0 Intake and Output 02/28/17 02/28/17 03/01/17 15:00 23:00 07:00 Intake Total 720 ml 360 ml Balance 720 ml 360 ml Exam Free Text/Dictation GENERAL: Awake, alert, oriented x 3. No acute distress. CARDIOVASCULAR: S1S2, regular rate and rhythm. No murmurs appreciated. RESPIRATORY: Clear to auscultation bilaterally. ABDOMEN: Soft, bowel sounds present, nondistended, nontender to palpation. GROINS: Expected postop swelling of left groin. Mild tenderness to palpation. No hernia recurrence. INCISION: Clean, dry, intact. Moderate ecchymoses EXTREMITIES: Free range of motion x 4. No cyanosis, edema, or clubbing. Results Result Diagram: 03/01/17 0803/01/17 08 SAMINA SHORE MD Mar 01, 2017 19:27
[2017-03-01] MEDS: HYDROmorphONE 1 MG/ML SYG IV PRN (22:08)
[2017-03-02] VITALS (12 sets, daily range): BP systolic 111–128; BP diastolic 69–88; PULSE 62–83; RESP 17–18
[2017-03-02] MEDS: morphine 2 MG INJ IV PRN (05:20)
[2017-03-02 08:12] LABS: BASOPHILS % 0.4 % (0.0-2.0); EOSINOPHILS # 0.2 10^3/ul (0.0-0.5); EOSINOPHILS % 2.4 % (0.0-7.0); HEMATOCRIT 39.6 % (42.0-52.0); HEMOGLOBIN 12.8 g/dl (14.0-18.0); LYMPHOCYTES % 27.5 % (15.0-51.0); MEAN CORPUSCULAR HEMOGLOBIN 29.2 pg (29.0-33.0); MEAN CORPUSCULAR HGB CONC 32.3 g/dl (32.0-37.0); MEAN CORPUSCULAR VOLUME 90.2 fl (82.0-101.0); MEAN PLATELET VOLUME 10.4 fl (7.4-10.4); MONOCYTE # 0.9 10^3/ul (0.3-0.9); MONOCYTES % 12.5 % (0.0-11.0); NEUTROPHILS % 56.9 % (39.0-77.0); PLATELET COUNT 175 10^3/UL (140-415); RED BLOOD COUNT 4.39 10^6/ul (4.70-6.10); WHITE BLOOD COUNT 7.1 10^3/ul (4.8-10.8)
[2017-03-02 08:51] LABS: CALCIUM 9.4 mg/dl (8.4-10.2); CREATININE 0.84 mg/dl (0.61-1.24); POTASSIUM 4.1 mmol/L (3.5-5.1)
[2017-03-02] MEDS: SPIRONOLACTONE 25 MG TAB PO SCH (09:17)
[2017-03-02] MEDS: FUROSEMIDE 20 MG TAB PO SCH (09:18)
[2017-03-02] MEDS: FAMOTIDINE 20 MG TAB PO SCH ×2 (09:19→21:09)
[2017-03-02] MEDS: LOSARTAN 25 MG TAB PO SCH (09:19)
--- NOTE | 2017-03-02 10:06 | CONS ---
Date/Time of Note Date/Time of Note DATE: 03/02/17 TIME: 10:03 Assessment/Plan Assessment/Plan Additional Assessment/Plan 1. Supraventricular tachycardia. 2. Hypertension. 3. Congestive heart failure. 4. Chronic obstructive pulmonary disease. 5. Moderate Pulmonary Hypertension 6. Severely reduced systolic dysfunction with EF 20% 7. Dyslipidemia. Echo shows EF 20% with Moderate Pulmonary Hypertension Continue Losartan Continue Aldactone Continue Coreg Continue Low dose lasix Ok for discharge and follow up with Dr Soto in 1 week Consultation Date/Type/Reason Admit Date/Time Feb 28, 2017 at 15:28 Exam/Review of Systems Vital Signs Vitals Vital Signs Date Time Temp Pulse Resp B/P Pulse Ox O2 Delivery O2 Flow Rate FiO2 03/02/17 08:42 83 03/02/17 07:34 98.2 18 119/73 97 03/01/17 20:00 Nasal Cannula 2.0 Intake and Output 03/01/17 03/01/17 03/02/17 15:00 23:00 07:00 Intake Total 1320 ml 450 ml Output Total 850 ml Balance 1320 ml -400 ml Exam Constitutional: alert, oriented Head: atraumatic, normocephalic Neck: non-tender, supple Respiratory: clear to auscultation Cardiovascular: regular rate and rhythm Gastrointestinal: nl liver, spleen, non-tender, soft Extremities: normal pulses Results Result Diagram: 03/02/1772203/02/1723 Results 24 hrs Laboratory Tests Test 03/02/17 07:23 White Blood Count 7.1 Red Blood Count 4.39 L Hemoglobin 12.8 L Hematocrit 39.6 L Mean Corpuscular Volume 90.2 Mean Corpuscular Hemoglobin 29.2 Mean Corpuscular Hemoglobin Concent 32.3 Red Cell Distribution Width 15.0 H Platelet Count 175 Mean Platelet Volume 10.4 Neutrophils % 56.9 Lymphocytes % 27.5 Monocytes % 12.5 H Eosinophils % 2.4 Basophils % 0.4 Nucleated Red Blood Cells % 0.0 Neutrophils # (Manual) 4 Lymphocytes # 2.0 Monocytes # 0.9 Eosinophils # 0.2 Basophils # 0.0 Nucleated Red Blood Cells # 0.0 Sodium Level 137 Potassium Level 4.1 Chloride Level 98 Carbon Dioxide Level 29 Anion Gap 14 Blood Urea Nitrogen 22 H Creatinine 0.84 Glucose Level 86 Calcium Level 9.4 Magnesium Level 1.7 Medications Medications Current Medications Ibuprofen (Motrin) 600 mg Q6H PRN PO PAIN; Start 02/27/17 at 18:30 Ketorolac Tromethamine (Toradol) 30 mg ONCE PRN IV PAIN Last administered on 19:06; Admin Dose 30 MG; Start 02/27/17 at 18:30; Stop 03/02/17 at 18:29 Acetaminophen/ Hydrocodone Bitart ([place] (5/325)) 1 tab Q4H PRN PO PAIN LEVEL 1 -3; Start 02/27/17 at 18:30 Acetaminophen/ Hydrocodone Bitart ([place] (5/325)) 2 tab Q4H PRN PO PAIN LEVEL 4 -6 Last administered on 03/01/17 04:15; Admin Dose 2 TAB; Start 02/27/17 at 18: 30 Ondansetron HCl (Zofran Inj) 4 mg Q6H PRN IV NAUSEA; Start 02/27/17 at 18:30 Hydromorphone HCl (Dilaudid) 0.5 mg Q6H PRN IV PAIN LEVEL 6-10 Last administered on 03/01/17 22:08; Admin Dose 0.5 MG; Start 02/27/17 at 19:00 Acetaminophen/ Hydrocodone Bitart ([place] (10/325)) 1 tab Q6H PRN PO PAIN; Start 02/27/17 at 19:00 Ondansetron HCl (Zofran Inj) 4 mg Q6H PRN IV NAUSEA AND/OR VOMITING; Start at 19:00 Famotidine (Pepcid) 20 mg BID PO Last administered on 03/02/17 09:19; Admin Dose 20 MG; Start 02/27/17 at 21:00 Carvedilol (Coreg) 3.125 mg BID PO Last administered on 03/02/17 09:19; Admin Dose 3.125 MG; Start 02/28/17 at 10:00 Losartan Potassium (Cozaar) 25 mg DAILY PO Last administered on 03/02/17 09:19 ; Admin Dose 25 MG; Start 03/01/17 at 09:30 Spironolactone (Aldactone) 25 mg DAILY PO Last administered on 03/02/17 09:17 ; Admin Dose 25 MG; Start 03/01/17 at 09:30 Morphine Sulfate (morphine) 2 mg Q4H PRN IV SEVERE PAIN LEVEL 7-10 Last administered on 03/02/17 05:20; Admin Dose 2 MG; Start 03/01/17 at 18:30 Furosemide (Lasix) 20 mg DAILY PO Last administered on 03/02/17 09:18; Admin Dose 20 MG; Start 03/01/17 at 18:00 CARLOS SOTO M.D. Mar 02, 2017 10:05
--- NOTE | 2017-03-02 10:11 | PN ---
Date/Time of Note Date/Time of Note DATE: 03/02/17 TIME: 10:06 Assessment/Plan VTE Prophylaxis VTE Prophylaxis Intervention: other Lines/Catheters IV Catheter Type (from [facility]): Saline Lock Assessment/Plan Assessment/Plan - Supraventricular tachycardia. No episodes of SVT, patient denies any chest pain. SR HR 70 - patient with severe left ventricular dysfunction, undergoing medication optimization by cardiology - Continue telemetry monitoring. - Dr. Orellana is following the patient in cardiology consultation. - Acute on chronic systolic and diastolic congestive heart failure with ejection fraction of 20% - Rule out acute coronary syndrome. Troponin is negative 3. - Left inguinal hernia, status post hernia repair with mesh by Dr. Beltran. - per surgery - Hypertension. Continue Coreg. - Chronic obstructive pulmonary disease (COPD). - Tobacco dependence. Smoking cessation is strongly advised. - Hx Hepatitis C. Further recommendations based on clinical course. Plan of care discussed with Dr. Kendall. Subjective 24 Hr Interval Summary Free Text/Dictation c/o left inguinal sx site pain. denies any chest pain. dw staff- no new events reported. Respiratory: no complaints Cardiovascular: no complaints Gastrointestinal: no complaints Genitourinary: other (left inguinal sp sx pain) Musculoskeletal: no complaints Skin: other Exam/Review of Systems Vital Signs Vitals Vital Signs Date Time Temp Pulse Resp B/P Pulse Ox O2 Delivery O2 Flow Rate FiO2 03/02/17 08:42 83 03/02/17 07:34 98.2 18 119/73 97 03/01/17 20:00 Nasal Cannula 2.0 Intake and Output 03/01/17 03/01/17 03/02/17 15:00 23:00 07:00 Intake Total 1320 ml 450 ml Output Total 850 ml Balance 1320 ml -400 ml Exam Constitutional: alert, oriented, well developed Respiratory: clear to auscultation Cardiovascular: nl pulses, regular rate and rhythm Gastrointestinal: non-tender, soft Genitourinary - Male: other (sp left inguinal sx- demabond noted) Musculoskeletal: nl extremities to inspection Extremities: normal pulses Neurological: nl mental status, nl speech Results Result Diagram: 03/02/17 0723 03/02/17 0723 Results 24 hrs Laboratory Tests Test 03/02/17 07:23 White Blood Count 7.1 Red Blood Count 4.39 L Hemoglobin 12.8 L Hematocrit 39.6 L Mean Corpuscular Volume 90.2 Mean Corpuscular Hemoglobin 29.2 Mean Corpuscular Hemoglobin Concent 32.3 Red Cell Distribution Width 15.0 H Platelet Count 175 Mean Platelet Volume 10.4 Neutrophils % 56.9 Lymphocytes % 27.5 Monocytes % 12.5 H Eosinophils % 2.4 Basophils % 0.4 Nucleated Red Blood Cells % 0.0 Neutrophils # (Manual) 4 Lymphocytes # 2.0 Monocytes # 0.9 Eosinophils # 0.2 Basophils # 0.0 Nucleated Red Blood Cells # 0.0 Sodium Level 137 Potassium Level 4.1 Chloride Level 98 Carbon Dioxide Level 29 Anion Gap 14 Blood Urea Nitrogen 22 H Creatinine 0.84 Glucose Level 86 Calcium Level 9.4 Magnesium Level 1.7 Medications Medications Current Medications Ibuprofen (Motrin) 600 mg Q6H PRN PO PAIN; Start 02/27/17 at 18:30 Ketorolac Tromethamine (Toradol) 30 mg ONCE PRN IV PAIN Last administered on 19:06; Admin Dose 30 MG; Start 02/27/17 at 18:30; Stop 03/02/17 at 18:29 Acetaminophen/ Hydrocodone Bitart ([place] (5/325)) 1 tab Q4H PRN PO PAIN LEVEL 1 -3; Start 02/27/17 at 18:30 Acetaminophen/ Hydrocodone Bitart ([place] (5/325)) 2 tab Q4H PRN PO PAIN LEVEL 4 -6 Last administered on 03/01/17 04:15; Admin Dose 2 TAB; Start 02/27/17 at 18: 30 Ondansetron HCl (Zofran Inj) 4 mg Q6H PRN IV NAUSEA; Start 02/27/17 at 18:30 Hydromorphone HCl (Dilaudid) 0.5 mg Q6H PRN IV PAIN LEVEL 6-10 Last administered on 03/01/17 22:08; Admin Dose 0.5 MG; Start 02/27/17 at 19:00 Acetaminophen/ Hydrocodone Bitart ([place] (10/325)) 1 tab Q6H PRN PO PAIN; Start 02/27/17 at 19:00 Ondansetron HCl (Zofran Inj) 4 mg Q6H PRN IV NAUSEA AND/OR VOMITING; Start at 19:00 Famotidine (Pepcid) 20 mg BID PO Last administered on 03/02/17 09:19; Admin Dose 20 MG; Start 02/27/17 at 21:00 Carvedilol (Coreg) 3.125 mg BID PO Last administered on 03/02/17 09:19; Admin Dose 3.125 MG; Start 02/28/17 at 10:00 Losartan Potassium (Cozaar) 25 mg DAILY PO Last administered on 03/02/17 09:19 ; Admin Dose 25 MG; Start 03/01/17 at 09:30 Spironolactone (Aldactone) 25 mg DAILY PO Last administered on 03/02/17 09:17 ; Admin Dose 25 MG; Start 03/01/17 at 09:30 Morphine Sulfate (morphine) 2 mg Q4H PRN IV SEVERE PAIN LEVEL 7-10 Last administered on 03/02/17 05:20; Admin Dose 2 MG; Start 03/01/17 at 18:30 Furosemide (Lasix) 20 mg DAILY PO Last administered on 03/02/17 09:18; Admin Dose 20 MG; Start 03/01/17 at 18:00 JULISA BAKER Mar 02, 2017 10:10
[2017-03-02] MEDS ORDERED: ZOLPIDEM 5 MG TAB PO PRN (22:00)
[2017-03-03] VITALS (9 sets, daily range): BP systolic 120–133; BP diastolic 60–79; PULSE 68–74; RESP 17–20
[2017-03-03 07:33] LABS: BASOPHILS % 0.4 % (0.0-2.0); EOSINOPHILS # 0.2 10^3/ul (0.0-0.5); EOSINOPHILS % 3.4 % (0.0-7.0); HEMATOCRIT 41.6 % (42.0-52.0); HEMOGLOBIN 13.5 g/dl (14.0-18.0); LYMPHOCYTES # 1.6 10^3/ul (0.8-2.9); MEAN CORPUSCULAR HEMOGLOBIN 29.4 pg (29.0-33.0); MEAN CORPUSCULAR HGB CONC 32.5 g/dl (32.0-37.0); MEAN CORPUSCULAR VOLUME 90.6 fl (82.0-101.0); MEAN PLATELET VOLUME 9.8 fl (7.4-10.4); MONOCYTE # 0.8 10^3/ul (0.3-0.9); MONOCYTES % 11.7 % (0.0-11.0); NEUTROPHILS % 60.2 % (39.0-77.0); PLATELET COUNT 202 10^3/UL (140-415); RED BLOOD COUNT 4.59 10^6/ul (4.70-6.10); WHITE BLOOD COUNT 6.8 10^3/ul (4.8-10.8)
[2017-03-03 08:19] LABS: CALCIUM 9.6 mg/dl (8.4-10.2); CREATININE 0.89 mg/dl (0.61-1.24); POTASSIUM 4.5 mmol/L (3.5-5.1)
[2017-03-03] MEDS: LOSARTAN 25 MG TAB PO SCH (08:28)
[2017-03-03] MEDS: FAMOTIDINE 20 MG TAB PO SCH (08:28)
[2017-03-03] MEDS: FUROSEMIDE 20 MG TAB PO SCH (08:29)
[2017-03-03] MEDS: SPIRONOLACTONE 25 MG TAB PO SCH (08:29)
--- NOTE | 2017-03-03 11:24 | PN ---
Date/Time of Note Date/Time of Note DATE: 03/03/17 TIME: 11:21 Assessment/Plan Lines/Catheters IV [facility] ([facility] Saline Lock Assessment/Plan Assessment/Plan 61-year-old male status post left inguinal hernia repair with mesh and postop SVT postop day #4 * Remains in sinus rhythm * Cardiology consult appreciated * Echocardiogram noted. EF 20%. * Discharge home once medically cleared by cardiology * Surgically cleared for discharge home * Follow-up in office in 2 weeks Subjective 24 Hr Interval Summary Doing well and wants to go home. Remains in sinus rhythm Exam/Review of Systems Vital Signs Vitals Vital Signs Date Time Temp Pulse Resp B/P Pulse Ox O2 Delivery O2 Flow Rate FiO2 03/03/17 08:25 68 03/03/17 08:04 98.1 17 133/77 99 03/01/17 20:00 Nasal Cannula 2.0 Intake and Output 03/02/17 03/02/17 03/03/17 15:00 23:00 07:00 Intake Total 720 ml 550 ml Output Total 700 ml Balance 720 ml -150 ml Exam Free Text/Dictation GENERAL: Awake, alert, oriented x 3. No acute distress. CARDIOVASCULAR: S1S2, regular rate and rhythm. No murmurs appreciated. RESPIRATORY: Clear to auscultation bilaterally. ABDOMEN: Soft, bowel sounds present, nondistended, nontender to palpation. GROINS: Expected postop swelling of left groin. Mild tenderness to palpation. No hernia recurrence. INCISION: Clean, dry, intact. Moderate ecchymoses, improving EXTREMITIES: Free range of motion x 4. No cyanosis, edema, or clubbing. Results Result Diagram: 03/03/17 0630 03/03/17 0646 SAMINA SHORE MD Mar 03, 2017 11:24
[2017-03-03] MEDS ORDERED: CARV3.1260 PO (16:34)
[2017-03-03] MEDS ORDERED: LOSA25TA2 PO (16:34)
[2017-03-03] MEDS ORDERED: SPIR25TA PO (16:34)
[2017-03-03] MEDS ORDERED: LAS20 PO (16:34)
--- NOTE | 2017-03-03 17:06 | RADRPT ---
Vent Rate: 82 bpm RR Interval: 0 msec FL Interval: 224 msec QRS Duration: 120 msec QT Interval: 418 msec QTC Interval: 488 msec P-R-T [place]: 71 - -22 - 84 degrees Sinus rhythm with 1st degree AV block Nonspecific intraventricular conduction delay Borderline ECG Electronically Signed By: Trevor Wan [id number]
--- NOTE | 2017-03-04 07:20 | DS ---
Date/Time of Note Date/Time of Note DATE: 03/04/17 TIME: 07:17 Discharge Summary Admission/Discharge Info Admit Date/Time Feb 28, 2017 at 15:28 Discharge Date/Time Mar 03, 2017 at 17:35 Patient Condition: Stable Hx of Present Illness The patient is a 61-year-old, male, with past medical history positive for hypertension, congestive heart failure, and COPD. The patient with congestive heart failure with preserved ejection fraction of 50 percent, history of hepatitis C. Patient developed a left inguinal hernia and was evaluated by Dr. Beltran in General Surgery consultation. Patient was brought to the hospital and underwent left inguinal hernia repair with mesh. The patient developed SVT while in recovery, was given adenosine and verapamil, which did not help. The patient had been shocked, after that the patient has converted to sinus rhythm. Currently in recovery the patient is awake, alert, and oriented. Denies any chest pain. Denies shortness of breath. Remains in sinus rhythm with first degree block. The patient denies any nausea and vomiting, however, complains of left inguinal pain. Patient will be admitted for further evaluation and management to telemetry floor. Hospital Course - Supraventricular tachycardia. Dr. Orellana is following the patient in cardiology consultation. - Acute on chronic systolic and diastolic congestive heart failure with ejection fraction of 20%. Continue diuretics. - Rule out acute coronary syndrome. Troponin is negative 3. - Left inguinal hernia, status post hernia repair with mesh by Dr. Beltran. - Hypertension. Continue Coreg and Cozaar. - Chronic obstructive pulmonary disease. - Tobacco dependence. Smoking cessation is strongly advised. - Hx Hepatitis C. Home Meds Active Scripts Losartan Potassium* (Cozaar*) 25 Mg Tablet, 25 MG PO DAILY for 30 Days, TAB Prov:JULIO GUERREROLANA 03/03/17 Spironolactone* (Aldactone*) 25 Mg Tablet, 25 MG PO DAILY for 30 Days, TAB Prov:JULIO GUERREROLANA 03/03/17 Furosemide (Lasix) 20 Mg Tab, 20 MG PO DAILY for 30 Days, TAB Prov:JULIO GUERREROLANA 03/03/17 Carvedilol* (Carvedilol*) 3.125 Mg Tablet, 3.125 MG PO BID for 30 Days, TAB Prov:LUBA GUERRERO 03/03/17 Reported Medications Aspirin* (Aspirin* Chew) 81 Mg Tab.chew, 81 MG PO DAILY, TAB.CHEW 02/27/17 Atorvastatin* (Atorvastatin*) 80 Mg Tablet, 80 MG PO QHS, #30 TAB 02/27/17 Ferrous Sulfate* (Ferrous Sulfate*) 325 Mg Tabec, 325 MG PO DAILY, TAB 02/27/17 Discontinued Reported Medications Carvedilol* (Carvedilol*) 6.25 Mg Tablet, 6.25 MG PO BID, #60 TAB 02/27/17 Benazepril Hcl* (Benazepril Hcl*) 10 Mg Tablet, 10 MG PO DAILY, #30 TAB 02/27/17 Furosemide* (Furosemide*) 20 Mg Tablet, 5 MG PO DAILY, #30 TAB 02/27/17 Follow-up Plan f/up with Dr Orellana in 1 week, f/up with Dr Beltran in 1-2 weeks. Primary Care Provider Not On Staff Doctor LUBA GUERRERO Mar 04, 2017 07:20
== END 2017-03-03 17:35 | disposition home or self-care (01) | DRG 264 ==
LOC: SDS 09:57 → MS4 21:00 → SDS 02-28 15:28
PROVIDERS: ADMIT Internal Medicine; ATTEND Surgery
PROC: XHRPXL2 Replacement of Skin using Porcine Liver Derived Skin Substitute, External Approach, New Technology Group 2 (ICD-10-PCS; 2017-02-27)
PROC: 0YU60JZ Supplement Left Inguinal Region with Synthetic Substitute, Open Approach (ICD-10-PCS; principal; 2017-02-27 16:00)
PROC: 5A2204Z Restoration of Cardiac Rhythm, Single (ICD-10-PCS; 2017-02-28)
DX: I47.1 Supraventricular tachycardia (principal); I50.43 Acute on chronic combined systolic (congestive) and diastolic (congestive) heart failure; K40.90 Unilateral inguinal hernia, without obstruction or gangrene, not specified as recurrent; I11.0 Hypertensive heart disease with heart failure; J44.9 Chronic obstructive pulmonary disease, unspecified; B19.20 Unspecified viral hepatitis C without hepatic coma; I44.0 Atrioventricular block, first degree; F17.200 Nicotine dependence, unspecified, uncomplicated; E78.5 Hyperlipidemia, unspecified; I27.2 Other secondary pulmonary hypertension
CPT/HCPCS: 71010; 80048; 80053; 82553; 83735; 83880; 84439; 84443; 84484; 85025; 85610; 85730; 88302; 93005; 93306; C1781; J0153; J1170; J1885; J2001; J2175; J2250; J2270; J2370; J2405; J2710; J3010; J3475; J7030

== ENCOUNTER 2017-07-30 20:24 | Inpatient (IN) | END 2017-08-04 10:55 | disposition left against medical advice (07) | DRG 293 ==